=== PATIENT | female | born 1940 | race Caucasian/White ===

== ENCOUNTER 2024-05-19 04:00 | Emergency (ER) | payer OTHER ==
[~2024-05-19] VITALS: Ht 152.4 cm; Wt 54.4 kg
[2024-05-19] MEDS: ALBUTEROL SULFATE 2.5 MG/3 ML NEBU NEB ONE (04:21)
[2024-05-19] MEDS: IPRATROPIUM BROMIDE 0.5 MG/2.5 ML NEBU NEB ONE (04:21)
[2024-05-19] MEDS ORDERED: ALBUTEROL SULFATE 2.5 MG/3 ML NEBU ONE (04:24)
[2024-05-19 04:25] LABS: BASOPHILS # (AUTO) 0.2 K/UL (0.0-0.2); BASOPHILS % (AUTO) 1.3 % (0.0-2.0); EOSINOPHILS # (AUTO) 0.2 K/uL (0.0-0.7); EOSINOPHILS % (AUTO) 1.1 % (0.0-7.0); HEMATOCRIT 37.8 % (31.2-41.9); HEMOGLOBIN 12.2 g/dL (10.9-14.3); LYMPHOCYTES # (AUTO) 1.5 K/uL (0.8-4.8); LYMPHOCYTES % (AUTO) 10.2 % (20.5-51.5); MEAN CORPUSCULAR HEMOGLOBIN 31.9 uug (24.7-32.8); MEAN CORPUSCULAR HGB CONC 32 g/dL (32.3-35.6); MEAN CORPUSCULAR VOLUME 98.5 fL (75.5-95.3); MONOCYTES # (AUTO) 1.5 K/uL (0.1-1.30); MONOCYTES % (AUTO) 10.4 % (0.0-11.0); NEUTROPHILS # (AUTO) 11.2 K/uL (1.8-8.9); PLATELET COUNT (AUTO) 296 K/uL (179-408); RED BLOOD CELL COUNT(AUTO) 3.84 MIL/uL (3.63-4.92); RED CELL DISTRIBUTION WIDTH 17.5 % (12.3-17.7); WHITE BLOOD COUNT (AUTO) 14.6 K/uL (3.8-11.8)
[2024-05-19] MEDS ORDERED: IPRATROPIUM BROMIDE 0.5 MG/2.5 ML NEBU ONE (04:25)
[2024-05-19 04:30] VITALS: O2SAT 96
[2024-05-19] MEDS ORDERED: MAGNESIUM SULFATE 1 GM/2 ML VIAL ONE (04:31)
[2024-05-19] MEDS ORDERED: MAGNESIUM SULFATE/D5W 100 ML ONE (04:31)
[2024-05-19] MEDS ORDERED: methylPREDNISolone SOD SUCC 125 MG/2 ML VIAL ONE (04:31)
[2024-05-19] MEDS: MAGNESIUM SULFATE 2 GM in IV DEXTROSE 5% 100 ML IV ONE (04:36)
[2024-05-19 04:38] LABS: ALANINE AMINOTRANSFERASE 31 U/L (14-59); ALBUMIN 2.9 g/dL (3.4-5.0); ALKALINE PHOSPHATASE 98 U/L (50-136); ASPARTATE AMINOTRANSFERASE 25 U/L (15-37); BILIRUBIN,TOTAL 1.5 mg/dL (0.2-1.0); CALCIUM 8.9 mg/dL (8.5-10.1); CARBON DIOXIDE 27 mmol/L (21-32); CHLORIDE 108 mmol/L (98-107); CREATININE 0.9 mg/dL (0.6-1.3); GLUCOSE 102 mg/dL (74-106); MAGNESIUM 2.3 mg/dL (1.8-2.4); POTASSIUM 4.1 mmol/L (3.5-5.1); SODIUM SERUM 144 mmol/L (136-145); TOTAL PROTEIN, SERUM 6.9 g/dL (6.4-8.2); UREA NITROGEN, BLOOD 22 mg/dL (7-18)
[2024-05-19 04:41] VITALS: O2SAT 98
[2024-05-19] MEDS: methylPREDNISolone SOD SUCC 125 MG/2 ML VIAL IV ONE (04:42)
[2024-05-19 04:44] LABS: C-REACTIVE PROTEIN 1.48 mg/dL (0.00-0.30)
[2024-05-19 04:45] VITALS: O2SAT 99
[2024-05-19] MEDS ORDERED: ROSU5TAB PO (04:52)
[2024-05-19] MEDS ORDERED: MULT-594 PO (04:52)
[2024-05-19] MEDS ORDERED: MIRT7.5T10 PO (04:52)
[2024-05-19] MEDS ORDERED: ASCO500C18 PO (04:52)
[2024-05-19] MEDS ORDERED: APIX2.5T PO (04:52)
[2024-05-19] MEDS ORDERED: MIDO5TAB5 PO (04:52)
[2024-05-19] MEDS ORDERED: FOLI1TAB27 PO (04:52)
[2024-05-19] MEDS ORDERED: LIDO30AD10 TD (04:52)
[2024-05-19] MEDS ORDERED: IBAN150T16 PO (04:52)
[2024-05-19] MEDS ORDERED: OXYC5CAP18 PO (04:52)
[2024-05-19] MEDS ORDERED: CHOL2000 PO (04:52)
[2024-05-19] MEDS ORDERED: CYAN100T44 PO (04:52)
[2024-05-19] MEDS ORDERED: CALC-494 PO (04:52)
[2024-05-19] MEDS ORDERED: GABA-532 PO (04:52)
[2024-05-19] MEDS ORDERED: LEVO125T8 PO (04:52)
[2024-05-19] MEDS ORDERED: FERR325T28 PO (04:52)
[2024-05-19] MEDS ORDERED: ZINC220T3 PO (04:52)
[2024-05-19 05:28] LABS: ABG BASE EXCESS -2.4 mmol/L (-2.0-3.0); ABG HCO3 20.3 mmol/L (21.0-28.0); ABG PCO2 29.2 mmHg (32.0-45.0); ABG SITE LEFT RADIAL; ABG TOTAL HEMOGLOBIN 13.3 G/dL (12.0-16.0); COHb 0.4 % (0.5-1.5); MetHb 0.2 % (0.0-1.5); O2Hb 89.6 % (94.0-98.0)
[2024-05-19] MEDS ORDERED: FUROSEMIDE 40 MG/4 ML VIAL ONE (06:08)
[2024-05-19] MEDS ORDERED: CEFTRIAXONE /D5W 50ML IVPB **ER PYXIS IV ONE (06:08)
[2024-05-19] MEDS: FUROSEMIDE 40 MG/4 ML VIAL IV ONE (06:14)
[2024-05-19] MEDS: CEFTRIAXONE 1 G in IV DEXTROSE 5% 50 ML IV ONE (06:14)
[2024-05-19] MEDS ORDERED: AZITHROMYCIN 500MG/ D5W 250ML IVPB **ER PYXIS ONLY IV ONE (06:43)
[2024-05-19] MEDS: AZITHROMYCIN IV 500 MG in IV DEXTROSE 5% 250 ML IV ONE (06:46)
[2024-05-19 10:33] VITALS: BP 141/62; TEMP 98; O2SAT 99
== END 2024-05-19 10:36 ==
LOC: ER 04:13
DX: R06.03 Acute respiratory distress (principal); R05.9 Cough, unspecified; E03.9 Hypothyroidism, unspecified; E78.5 Hyperlipidemia, unspecified; F03.94 Unspecified dementia, unspecified severity, with anxiety; Z79.01 Long term (current) use of anticoagulants; Z79.890 Hormone replacement therapy; Z79.899 Other long term (current) drug therapy; Z86.73 Personal history of transient ischemic attack (TIA), and cerebral infarction without residual deficits; Z20.822 Contact with and (suspected) exposure to COVID-19
CPT/HCPCS: 36415; 36600; 71045; 83735; 84484; 85025; 86140; 87040; A4606; A4663; J0456; J0696; J1940; J2919; J3475; J3590

== ENCOUNTER 2024-06-15 22:19 | Inpatient (IN) | payer OTHER ==
[~2024-06-15] VITALS: Ht 157.5 cm; Wt 49.9 kg
[~2024-06-15 22:19] MED LIST: APIX2.5T PO; ASCO500C18 PO; CALC-494 PO; CHOL2000 PO; CYAN100T44 PO; FERR325T28 PO; FOLI1TAB27 PO; GABA-532 PO; IBAN150T16 PO; LEVO125T8 PO; LIDO30AD10 TD; MIDO5TAB5 PO; MIRT7.5T10 PO; MULT-594 PO; OXYC5CAP18 PO; ROSU5TAB PO; ZINC220T3 PO
[2024-06-15 23:36] LABS: BASOPHILS # (AUTO) 0.1 K/UL (0.0-0.2); BASOPHILS % (AUTO) 1.2 % (0.0-2.0); EOSINOPHILS # (AUTO) 0.3 K/uL (0.0-0.7); EOSINOPHILS % (AUTO) 2.5 % (0.0-7.0); HEMOGLOBIN 13.4 g/dL (10.9-14.3); LYMPHOCYTES # (AUTO) 1.9 K/uL (0.8-4.8); LYMPHOCYTES % (AUTO) 18.7 % (20.5-51.5); MEAN CORPUSCULAR HEMOGLOBIN 32.5 uug (24.7-32.8); MEAN CORPUSCULAR HGB CONC 33 g/dL (32.3-35.6); MEAN CORPUSCULAR VOLUME 97.1 fL (75.5-95.3); MONOCYTES # (AUTO) 1.1 K/uL (0.1-1.30); MONOCYTES % (AUTO) 10.5 % (0.0-11.0); NEUTROPHILS # (AUTO) 6.8 K/uL (1.8-8.9); NEUTROPHILS % (AUTO) 67.1 % (38.5-71.5); PLATELET COUNT (AUTO) 296 K/uL (179-408); RED BLOOD CELL COUNT(AUTO) 4.12 MIL/uL (3.63-4.92); RED CELL DISTRIBUTION WIDTH 15.6 % (12.3-17.7); WHITE BLOOD COUNT (AUTO) 10.2 K/uL (3.8-11.8)
[2024-06-15 23:57] LABS: ALANINE AMINOTRANSFERASE 21 U/L (14-59); ALBUMIN 3.2 g/dL (3.4-5.0); ALKALINE PHOSPHATASE 111 U/L (50-136); ASPARTATE AMINOTRANSFERASE 22 U/L (15-37); BILIRUBIN,DIRECT 0.4 mg/dL (0.0-0.2); BILIRUBIN,TOTAL 1.6 mg/dL (0.2-1.0); CALCIUM 9.1 mg/dL (8.5-10.1); CARBON DIOXIDE 28 mmol/L (21-32); CHLORIDE 107 mmol/L (98-107); CREATININE 0.8 mg/dL (0.6-1.3); GLUCOSE 109 mg/dL (74-106); NT-PRO BNP 3036 pg/mL (0-125); POTASSIUM 4.1 mmol/L (3.5-5.1); SODIUM SERUM 145 mmol/L (136-145); TOTAL PROTEIN, SERUM 6.9 g/dL (6.4-8.2); UREA NITROGEN, BLOOD 16 mg/dL (7-18)
[2024-06-16] MEDS ORDERED: FUROSEMIDE 40 MG/4 ML VIAL ONE ×2 (00:45→13:01)
[2024-06-16] MEDS ORDERED: NITROGLYCERIN OINT 1 GM PACKET TP ONE (00:45)
[2024-06-16] MEDS: FUROSEMIDE 40 MG/4 ML VIAL IV ONE ×2 (00:54→13:18)
[2024-06-16] MEDS: NITROGLYCERIN OINT 1 GM PACKET TP ONE (00:54)
[2024-06-16] MEDS: NYSTATIN CREAM 30 GM TUBE TOP SCH (02:00)
[2024-06-16] MEDS ORDERED: ONDANSETRON 4 MG/2 ML VIAL IV PRN ×2 (04:15→13:45)
[2024-06-16] MEDS ORDERED: MAGNESIUM HYDROXIDE 30 ML LIQUID UDC PO PRN ×2 (04:15→13:45)
[2024-06-16] MEDS ORDERED: ACETAMINOPHEN 325 MG TABLET PO PRN ×2 (04:15→13:45)
[2024-06-16] MEDS ORDERED: REMEDY ESSENTIAL ZINC PASTE 113 GM TP PRN ×2 (04:15→13:45)
[2024-06-16 07:55] LABS: BASOPHILS # (AUTO) 0.1 K/UL (0.0-0.2); BASOPHILS % (AUTO) 1.1 % (0.0-2.0); EOSINOPHILS # (AUTO) 0.2 K/uL (0.0-0.7); EOSINOPHILS % (AUTO) 2.5 % (0.0-7.0); HEMATOCRIT 44.1 % (31.2-41.9); HEMOGLOBIN 14.5 g/dL (10.9-14.3); LYMPHOCYTES # (AUTO) 1.2 K/uL (0.8-4.8); LYMPHOCYTES % (AUTO) 14.2 % (20.5-51.5); MEAN CORPUSCULAR HGB CONC 33 g/dL (32.3-35.6); MEAN CORPUSCULAR VOLUME 100.3 fL (75.5-95.3); MONOCYTES # (AUTO) 0.9 K/uL (0.1-1.30); MONOCYTES % (AUTO) 9.8 % (0.0-11.0); NEUTROPHILS # (AUTO) 6.4 K/uL (1.8-8.9); NEUTROPHILS % (AUTO) 72.4 % (38.5-71.5); PLATELET COUNT (AUTO) 290 K/uL (179-408); RED CELL DISTRIBUTION WIDTH 16.4 % (12.3-17.7); WHITE BLOOD COUNT (AUTO) 8.8 K/uL (3.8-11.8)
[2024-06-16 08:05] LABS: CALCIUM 9.3 mg/dL (8.5-10.1); CARBON DIOXIDE 29 mmol/L (21-32); CHLORIDE 106 mmol/L (98-107); CREATININE 0.7 mg/dL (0.6-1.3); GLUCOSE 107 mg/dL (74-106); POTASSIUM 3.7 mmol/L (3.5-5.1); SODIUM SERUM 145 mmol/L (136-145); UREA NITROGEN, BLOOD 13 mg/dL (7-18)
[2024-06-16 08:12] LABS: DIFFERENTIAL COMMENT 1
[2024-06-16] MEDS ORDERED: PANTOPRAZOLE SODIUM 40 MG VIAL IV SCH (09:00)
[2024-06-16] MEDS: LIDOCAINE 5% PATCH TD SCH (09:00)
[2024-06-16] MEDS ORDERED: Medication Not On Formulary EA (Rosuvastatin Calcium (Crestor) 5 MG) PO SCH (09:00)
[2024-06-16] MEDS ORDERED: LIDOCAINE 5% PATCH TD ONE (09:06)
[2024-06-16] MEDS ORDERED: CYANOCOBALAMIN 1,000 MCG TABLET ONE (09:07)
[2024-06-16] MEDS ORDERED: MIDODRINE HCL 5 MG TABLET ONE (09:07)
[2024-06-16] MEDS ORDERED: LEVOTHYROXINE SODIUM 125 MCG TABLET ONE (09:07)
[2024-06-16] MEDS ORDERED: FOLIC ACID 1 MG TABLET ONE (09:07)
[2024-06-16] MEDS ORDERED: APIXABAN 2.5 MG TABLET ONE (09:09)
[2024-06-16] MEDS: FOLIC ACID 1 MG TABLET PO SCH (09:12)
[2024-06-16] MEDS: CYANOCOBALAMIN 100 MCG TABLET PO SCH (09:13)
[2024-06-16] MEDS: LEVOTHYROXINE SODIUM 125 MCG TABLET PO SCH (09:13)
[2024-06-16] MEDS: MIDODRINE HCL 5 MG TABLET PO SCH (09:13)
[2024-06-16] MEDS: APIXABAN 2.5 MG TABLET PO SCH (09:28)
[2024-06-16] MEDS ORDERED: MAGNESIUM CHLORIDE 64 MG TABLET.SA PO SCH (13:00)
[2024-06-16] MEDS ORDERED: POTASSIUM BICARBONATE/CIT AC 25 MEQ TABLET.EFF ONE (13:01)
[2024-06-16] MEDS: POTASSIUM BICARBONATE/CIT AC 25 MEQ TABLET.EFF PO ONE (13:18)
[2024-06-16] MEDS ORDERED: ASCORBIC ACID 500 MG TABLET ONE (17:11)
[2024-06-16] MEDS: ASCORBIC ACID 500 MG TABLET PO SCH (17:13)
[2024-06-16] MEDS ORDERED: hydrALAZINE HCL 20 MG/1 ML VIAL ONE (17:43)
[2024-06-16] MEDS: hydrALAZINE HCL 20 MG/1 ML VIAL IV PRN (17:46)
[2024-06-16 18:47] VITALS: BP 166/46; TEMP 97.9; O2SAT 95
[2024-06-16 19:43] VITALS: BP 132/42; TEMP 97.1; O2SAT 99
[2024-06-16] MEDS: GABAPENTIN 100 MG CAPSULE PO SCH (20:38)
[2024-06-16] MEDS: MIRTAZAPINE 15 MG TABLET PO SCH (20:39)
[2024-06-16 23:54] VITALS: BP 109/45; TEMP 97.8; O2SAT 96
[2024-06-17 00:29] LABS: *BILIRUBIN,URIN NEGATIVE (NEGATIVE); *CLARITY,URINE CLEAR (CLEAR); *COLOR,URINE YELLOW (YELLOW); *KETONES,URINE NEGATIVE (NEGATIVE); *PROTEIN,URINE NEGATIVE (NEGATIVE); *UROBILINOGEN,URINE 0.2 E.U./dl (NORMAL); LEUKOCYTE ESTERASE ,URINE NEGATIVE (NEGATIVE); NITRITE, URINE NEGATIVE (NEGATIVE); UGLUCOSE NEGATIVE (NEGATIVE)
[2024-06-17 00:36] LABS: *BLOOD, URINE TRACE (NEGATIVE)
[2024-06-17 01:06] LABS: RBC,URINE 0-3 /HPF (0-3)
[2024-06-17 01:07] LABS: BACTERIA,URINE FEW /HPF (NONE SEEN); SQUAMOUS EPITHELIAL CELL,UR FEW /HPF (NONE SEEN); WBC,URINE 0-3 /HPF (0-3)
[2024-06-17 03:59] VITALS: BP 127/41; TEMP 98; O2SAT 91
[2024-06-17] MEDS: LEVOTHYROXINE SODIUM 125 MCG TABLET PO SCH (06:23)
[2024-06-17] MEDS: PANTOPRAZOLE SODIUM 40 MG TABLET.DR PO SCH (06:23)
[2024-06-17 06:40] LABS: BASOPHILS # (AUTO) 0.1 K/UL (0.0-0.2); EOSINOPHILS # (AUTO) 0.1 K/uL (0.0-0.7); EOSINOPHILS % (AUTO) 1.3 % (0.0-7.0); HEMATOCRIT 39.9 % (31.2-41.9); HEMOGLOBIN 13.4 g/dL (10.9-14.3); LYMPHOCYTES # (AUTO) 1.4 K/uL (0.8-4.8); LYMPHOCYTES % (AUTO) 15.7 % (20.5-51.5); MEAN CORPUSCULAR HEMOGLOBIN 32.4 uug (24.7-32.8); MEAN CORPUSCULAR HGB CONC 34 g/dL (32.3-35.6); MEAN CORPUSCULAR VOLUME 96.3 fL (75.5-95.3); MONOCYTES # (AUTO) 0.9 K/uL (0.1-1.30); MONOCYTES % (AUTO) 10.7 % (0.0-11.0); NEUTROPHILS # (AUTO) 6.2 K/uL (1.8-8.9); NEUTROPHILS % (AUTO) 71.3 % (38.5-71.5); PLATELET COUNT (AUTO) 294 K/uL (179-408); RED BLOOD CELL COUNT(AUTO) 4.14 MIL/uL (3.63-4.92); RED CELL DISTRIBUTION WIDTH 15.8 % (12.3-17.7); WHITE BLOOD COUNT (AUTO) 8.8 K/uL (3.8-11.8)
[2024-06-17 06:57] LABS: DIFFERENTIAL COMMENT 1
[2024-06-17 07:04] LABS: CALCIUM 8.8 mg/dL (8.5-10.1); CARBON DIOXIDE 30 mmol/L (21-32); CHLORIDE 105 mmol/L (98-107); CHOLESTEROL 154 mg/dL (<200); CREATININE 1.1 mg/dL (0.6-1.3); GLUCOSE 87 mg/dL (74-106); HDL CHOLESTEROL 64 mg/dL (40-60); PHOSPHOROUS 4.6 mg/dL (2.5-4.9); POTASSIUM 3.6 mmol/L (3.5-5.1); SODIUM SERUM 145 mmol/L (136-145); TRIGLYCERIDES 54 MG/DL (30-150); UREA NITROGEN, BLOOD 16 mg/dL (7-18)
[2024-06-17 08:00] VITALS: BP 129/64; TEMP 97.7; O2SAT 96
[2024-06-17] MEDS: CALCIUM CARBONATE 500 MG TAB.CHEW PO SCH (08:46)
[2024-06-17] MEDS: ZINC SULFATE 220 MG CAPSULE PO SCH (08:47)
[2024-06-17] MEDS: MULTIVIT, IRON, MIN NO. 8, FA TABLET PO SCH (08:47)
[2024-06-17] MEDS: CYANOCOBALAMIN 1,000 MCG TABLET PO SCH (08:47)
[2024-06-17] MEDS: LISINOPRIL 10 MG TABLET PO SCH (08:47)
[2024-06-17] MEDS: CHOLECALCIFEROL 1,000 UNIT TABLET PO SCH (08:47)
[2024-06-17] MEDS: FUROSEMIDE 20 MG/2 ML VIAL IV SCH (10:16)
[2024-06-17 11:49] VITALS: BP 127/50; TEMP 98.3; O2SAT 95
[2024-06-17 11:55] VITALS: BP 127/50; TEMP 98.3; O2SAT 95
[2024-06-17 16:18] VITALS: BP 113/41; TEMP 97.8; O2SAT 94
[2024-06-17] MEDS: SIMVASTATIN 20 MG TABLET PO SCH (20:36)
[2024-06-17 20:43] VITALS: BP 130/47; TEMP 98.7; O2SAT 95
[2024-06-18 00:49] VITALS: BP 128/59; TEMP 97.8; O2SAT 95
[2024-06-18 04:00] VITALS: BP 129/60; TEMP 98; O2SAT 96
[2024-06-18 06:43] VITALS: TEMP 98
[2024-06-18 08:00] VITALS: BP 123/52; TEMP 98.5; O2SAT 95
[2024-06-18 10:00] LABS: BASOPHILS # (AUTO) 0.1 K/UL (0.0-0.2); BASOPHILS % (AUTO) 0.8 % (0.0-2.0); EOSINOPHILS # (AUTO) 0.1 K/uL (0.0-0.7); EOSINOPHILS % (AUTO) 1.6 % (0.0-7.0); HEMATOCRIT 41.5 % (31.2-41.9); HEMOGLOBIN 14.1 g/dL (10.9-14.3); LYMPHOCYTES # (AUTO) 1.4 K/uL (0.8-4.8); LYMPHOCYTES % (AUTO) 14.5 % (20.5-51.5); MEAN CORPUSCULAR HEMOGLOBIN 32.8 uug (24.7-32.8); MEAN CORPUSCULAR HGB CONC 34 g/dL (32.3-35.6); MEAN CORPUSCULAR VOLUME 96.7 fL (75.5-95.3); MONOCYTES % (AUTO) 10.7 % (0.0-11.0); NEUTROPHILS # (AUTO) 6.8 K/uL (1.8-8.9); NEUTROPHILS % (AUTO) 72.4 % (38.5-71.5); PLATELET COUNT (AUTO) 305 K/uL (179-408); RED BLOOD CELL COUNT(AUTO) 4.29 MIL/uL (3.63-4.92); RED CELL DISTRIBUTION WIDTH 15.8 % (12.3-17.7); WHITE BLOOD COUNT (AUTO) 9.4 K/uL (3.8-11.8)
[2024-06-18 10:07] LABS: DIFFERENTIAL COMMENT 1
[2024-06-18 10:16] LABS: ALANINE AMINOTRANSFERASE 23 U/L (14-59); ALBUMIN 3.1 g/dL (3.4-5.0); ALKALINE PHOSPHATASE 105 U/L (50-136); ASPARTATE AMINOTRANSFERASE 20 U/L (15-37); BILIRUBIN,TOTAL 2.3 mg/dL (0.2-1.0); CALCIUM 9.2 mg/dL (8.5-10.1); CARBON DIOXIDE 32 mmol/L (21-32); CHLORIDE 103 mmol/L (98-107); CREATININE 0.9 mg/dL (0.6-1.3); GLUCOSE 120 mg/dL (74-106); MAGNESIUM 2.2 mg/dL (1.8-2.4); PHOSPHOROUS 4.5 mg/dL (2.5-4.9); POTASSIUM 3.1 mmol/L (3.5-5.1); SODIUM SERUM 143 mmol/L (136-145); TOTAL PROTEIN, SERUM 6.8 g/dL (6.4-8.2); UREA NITROGEN, BLOOD 17 mg/dL (7-18)
[2024-06-18 11:30] VITALS: BP 125/60; TEMP 97.1; O2SAT 96
[2024-06-18 20:00] VITALS: BP 125/53; TEMP 98.1; O2SAT 95
[2024-06-19 06:00] VITALS: BP 143/67; TEMP 97.6; O2SAT 95
[2024-06-19] MEDS: LEVOTHYROXINE SODIUM 137 MCG TABLET PO SCH (06:18)
[2024-06-19 07:46] VITALS: BP 131/56; TEMP 98.1; O2SAT 98
[2024-06-19 08:41] VITALS: BP 143/67
[2024-06-19] MEDS: FUROSEMIDE 20 MG TABLET PO SCH (08:41)
[2024-06-19] MEDS ORDERED: LEVO137T2 PO ×2 (11:49→12:09)
[2024-06-19] MEDS ORDERED: LISI10TA29 PO ×2 (11:49→12:09)
[2024-06-19] MEDS ORDERED: FURO-152 PO (11:49)
[2024-06-19] MEDS ORDERED: EMPA10TA PO ×2 (11:49→12:09)
[2024-06-19] MEDS ORDERED: FURO20TA4 PO (12:09)
== END 2024-06-19 15:45 | DRG 291 ==
LOC: ER 22:19 → TRANSITION 06-16 11:22 → MEDSURG3 06-16 18:03 → TELE3 06-16 18:45 → MEDSURG3 06-18 11:10
PROVIDERS: ADMIT Nurse Practitioner Family; ATTEND Nurse Practitioner Family
DX: I11.0 Hypertensive heart disease with heart failure (principal); I50.33 Acute on chronic diastolic (congestive) heart failure; E44.1 Mild protein-calorie malnutrition; I48.20 Chronic atrial fibrillation, unspecified; I48.92 Unspecified atrial flutter; F03.94 Unspecified dementia, unspecified severity, with anxiety; R17 Unspecified jaundice; E03.9 Hypothyroidism, unspecified; B37.2 Candidiasis of skin and nail; E78.5 Hyperlipidemia, unspecified; Z79.01 Long term (current) use of anticoagulants; Z95.0 Presence of cardiac pacemaker; Z88.8 Allergy status to other drugs, medicaments and biological substances; Z79.890 Hormone replacement therapy; Z79.899 Other long term (current) drug therapy; Z87.440 Personal history of urinary (tract) infections; R73.9 Hyperglycemia, unspecified; I69.311 Memory deficit following cerebral infarction; Z99.3 Dependence on wheelchair; Z87.81 Personal history of (healed) traumatic fracture; E88.09 Other disorders of plasma-protein metabolism, not elsewhere classified
CPT/HCPCS: 36415; 71045; 83735; 84100; 84443; 84481; 84484; 85025; 93307; A6213; G0378; J0360; J1940